=== PATIENT | female | born 1940 | race Caucasian/White ===

== ENCOUNTER 2019-12-16 07:39 | Outpatient (RCR) | payer MEDICARE, SELFPAY ==
--- NOTE | 2019-11-03 09:08 | PCWOUND ---
Patient called to cancel appointment for 12:30pm as she has to see her dentist for an emergency visit. Rescheduled for 11/05/19 at 11:00AM.
== END 2019-12-29 23:59 | disposition home or self-care (01) ==
LOC: ANHWOC 07:39
PROVIDERS: PCP Internal Medicine; Visit Provider Internal Medicine
DX: S81.802D Unspecified open wound, left lower leg, subsequent encounter (principal)
CPT/HCPCS: 99212; A9270; G0463

== ENCOUNTER 2020-03-09 07:36 | Outpatient (RCR) | payer MEDICARE, SELFPAY | END 2020-03-29 23:59 | disposition home or self-care (01) | LOC: ANHWOC 07:36 | PROVIDERS: PCP Internal Medicine; Visit Provider Internal Medicine | DX: S81.802D Unspecified open wound, left lower leg, subsequent encounter (principal) | CPT/HCPCS: 99212; A9270; G0463 ==

== ENCOUNTER 2020-06-29 07:51 | Outpatient (RCR) | payer MEDICARE, SELFPAY | END 2020-07-05 23:59 | disposition home or self-care (01) | LOC: ANHWOC 07:51 | PROVIDERS: PCP Internal Medicine; Visit Provider Nurse Practitioner | DX: S81.802D Unspecified open wound, left lower leg, subsequent encounter (principal) | CPT/HCPCS: 99212; A9270; G0463 ==

== ENCOUNTER 2020-10-26 07:51 | Outpatient (RCR) | payer MEDICARE, SELFPAY | END 2020-11-02 23:59 | disposition home or self-care (01) | LOC: ANHWOC 07:51 | PROVIDERS: PCP Internal Medicine; Visit Provider Nurse Practitioner | DX: S81.802D Unspecified open wound, left lower leg, subsequent encounter (principal) | CPT/HCPCS: 99212; A9270; G0463 ==

== ENCOUNTER 2020-10-28 08:25 | Outpatient (CLI) | payer MEDICARE, SELFPAY ==
--- NOTE | ~2020-10-28 | US_ITS ---
EXAMINATION: US art doppler w press LE BI DATE: 10/28/2020 10:18 INDICATION: Open wound left lower leg TECHNIQUE: Segmental pressures and plethysmographic and Doppler waveforms of the brachial and lower e xtremity arteries were obtained. COMPARISON: None. FINDINGS: Right and left brachial artery pressures of 141 mm Hg and 139 mm Hg, respectively, are concordant (no rmal difference <= 30 mmHg). The right and left high-thigh pressure indices are 1.24 and 1.24, respec tively (normal > 1.2). The right ankle-brachial index (DARIUS) is 1.16 (normal >= 0.9-1). The right great toe-brachial index (T BI) is 0.80 (normal >= 0.6-0.8). The right lower extremity segmental pressure gradients are normal (n ormal gradients <= 20-30 mmHg between adjacent levels on the same leg or the same levels on the two l egs). Arterial waveforms are biphasic at the right dorsalis pedis artery and triphasic at the remaini ng arteries in the right lower limb with brisk systolic upstrokes throughout. The left DARIUS is 1.20. The left TBI is 0.91. The left lower extremity segmental pressure gradients are normal. Arterial waveforms are triphasic at the left common femoral and popliteal arteries and bipha sic at the remaining arteries in the left lower limb with brisk systolic upstrokes throughout. IMPRESSION: 1. Normal DARIUS's and TBI's bilaterally. No significant occlusive disease. Reviewed, dictated and finalized at location A. COLLECTOR
== END 2020-10-28 08:26 | disposition home or self-care (01) ==
PROVIDERS: PCP Internal Medicine; Visit Provider Nurse Practitioner
DX: S81.802D Unspecified open wound, left lower leg, subsequent encounter (principal); I73.9 Peripheral vascular disease, unspecified
CPT/HCPCS: 93923

== ENCOUNTER 2021-01-18 07:45 | Outpatient (RCR) | payer MEDICARE, SELFPAY | END 2021-02-21 23:59 | disposition home or self-care (01) | LOC: ANHWOC 07:45 | PROVIDERS: PCP Internal Medicine; Visit Provider Nurse Practitioner | DX: S81.802D Unspecified open wound, left lower leg, subsequent encounter (principal) | CPT/HCPCS: 99212; A9270; G0463 ==

== ENCOUNTER 2021-04-26 07:25 | Outpatient (RCR) | payer MEDICARE, SELFPAY | END 2021-05-23 23:59 | disposition home or self-care (01) | LOC: ANHWOC 07:25 | PROVIDERS: PCP Internal Medicine; Visit Provider Nurse Practitioner | DX: S81.802D Unspecified open wound, left lower leg, subsequent encounter (principal) | CPT/HCPCS: 99212; A9270; G0463 ==

== ENCOUNTER 2021-08-16 07:35 | Outpatient (RCR) | payer MEDICARE, SELFPAY | END 2021-08-22 23:59 | disposition home or self-care (01) | LOC: ANHWOC 07:35 | PROVIDERS: PCP Internal Medicine; Visit Provider Nurse Practitioner | DX: S81.802D Unspecified open wound, left lower leg, subsequent encounter (principal) | CPT/HCPCS: 99212; A9270; G0463 ==

== ENCOUNTER 2021-09-06 12:19 | Outpatient (RCR) | payer MEDICARE, SELFPAY | END 2021-11-20 08:11 | disposition home or self-care (01) | LOC: ANHWOC 12:19 | PROVIDERS: PCP Internal Medicine; Visit Provider Nurse Practitioner | DX: S81.802D Unspecified open wound, left lower leg, subsequent encounter (principal) | CPT/HCPCS: 99212; A9270; G0463 ==

== ENCOUNTER 2022-04-17 12:21 | Outpatient (CLI) | payer MEDICARE, SELFPAY ==
--- NOTE | ~2022-04-17 | US_ITS ---
EXAMINATION:US venous doppler LE LT INDICATION:Status post recent surgery. TECHNIQUE: Multiple grayscale, color flow and Doppler images of the left lower extremity deep venous systems were obtained and reviewed. COMPARISON:11/03/2015 FINDINGS: The common femoral, superficial femoral and popliteal veins demonstrate normal respiratory variation, augmentation and compressibility. Color flow is also seen within the posterior tibial, pe roneal, greater saphenous and profunda veins. There is superficial venous thrombosis of the left less er saphenous vein. IMPRESSION: 1: No lower extremity deep venous thrombosis. 2: Superficial venous thrombosis of the left lesser saphenous vein. Reviewed, dictated and finalized at location A.
== END 2022-04-17 12:22 | disposition home or self-care (01) ==
PROVIDERS: PCP Internal Medicine
DX: I83.223 Varicose veins of left lower extremity with both ulcer of ankle and inflammation (principal); L97.321 Non-pressure chronic ulcer of left ankle limited to breakdown of skin; I82.812 Embolism and thrombosis of superficial veins of left lower extremity
CPT/HCPCS: 93971

== ENCOUNTER 2022-04-23 12:24 | Outpatient (CLI) | payer MEDICARE, SELFPAY ==
--- NOTE | ~2022-04-23 | US_ITS ---
EXAMINATION:US venous doppler LE LT INDICATION:Follow-up superficial vein thrombosis of the left lesser saphenous vein TECHNIQUE: Multiple grayscale, color flow and Doppler images of the left lower extremity deep venous systems were obtained and reviewed. COMPARISON:04/17/2022 FINDINGS: The common femoral, superficial femoral and popliteal veins demonstrate normal respiratory variation, augmentation and compressibility. Color flow is also seen within the posterior tibial, pe roneal, greater saphenous and profunda veins. There is persistent superficial vein thrombosis of the left lesser saphenous vein. IMPRESSION: 1: No lower extremity deep venous thrombosis. 2: Persistent superficial venous thrombosis of the left lesser saphenous vein. Reviewed, dictated and finalized at location B.
== END 2022-04-23 12:25 | disposition home or self-care (01) ==
PROVIDERS: PCP Internal Medicine
DX: I83.023 Varicose veins of left lower extremity with ulcer of ankle (principal); I83.009 Varicose veins of unspecified lower extremity with ulcer of unspecified site
CPT/HCPCS: 93971

== ENCOUNTER → 2022-11-28 12:41 | Outpatient (CLI) | payer MEDICARE, SELFPAY ==
--- NOTE | ~2022-11-28 | XR_ITS ---
EXAMINATION: XR knee RT 2V INDICATION: Right knee pain TECHNIQUE: Two views of the right knee are obtained. COMPARISON: None available FINDINGS: There is advanced joint space narrowing of the medial compartment with resulting varus angu lation. There is chondrocalcinosis in the lateral compartment. Moderate osteoarthritis is noted in th e patellofemoral compartment. There is no fracture. Calcified atherosclerosis is noted. IMPRESSION: 1. 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 Reviewed, dictated and finalized at location B. ROOM CUTTER IMPRESSION: 1. Tricompartmental osteoarthritis of the knee, advanced in the medial compartm ent.
== END ==
PROVIDERS: PCP Nurse Practitioner; Visit Provider Nurse Practitioner
DX: M17.11 Unilateral primary osteoarthritis, right knee (principal)
CPT/HCPCS: 73560